=== PATIENT | female | born 1970 | race Caucasian/White ===

== ENCOUNTER 2018-04-09 07:47 | Inpatient (IN) | payer OTHER ==
[~2018-04-09 07:47] MED LIST: CEFAZOLIN 1 GM/50 ML (PMX) 50 ML IVPB; SOD CHLORIDE 0.9% 1,000 ML IV
[2018-04-09] MEDS ORDERED: LIDOCAINE 1% (MPF) 30 ML INJ (09:52)
[2018-04-09] MEDS ORDERED: BUPIVACAINE 0.25%/EPI (SDV) 30 ML INJ (09:52)
[2018-04-09] MEDS ORDERED: MIDAZOLAM 1 MG/ML 2 ML INJ (10:07)
[2018-04-09] MEDS ORDERED: ONDANSETRON 4 MG INJ (10:07)
[2018-04-09] MEDS ORDERED: ROPIVACAINE 0.5 % 30 ML VIAL (10:07)
[2018-04-09] MEDS ORDERED: ACETAMINOPHEN 1000MG/100ML IV 100 ML (10:07)
[2018-04-09] MEDS ORDERED: ROPIVACAINE 0.2% 20 ML VIAL (10:07)
[2018-04-09] MEDS ORDERED: CEFAZOLIN 1 GM INJ (10:07)
[2018-04-09] MEDS ORDERED: PROPOFOL 20 ML (10:07)
[2018-04-09] MEDS ORDERED: ROCURONIUM 50 MG INJ ×3 (10:07→13:56)
[2018-04-09] MEDS ORDERED: METOCLOPRAMIDE 10 MG INJ (10:08)
[2018-04-09] MEDS ORDERED: KETOROLAC 30 MG INJ (10:48)
[2018-04-09] MEDS ORDERED: FENTAnyl 50 MCG/ML VIAL (10:48)
[2018-04-09] MEDS ORDERED: morphine SULFATE/PF (10 MG/10 ML) INJ (11:50)
[2018-04-09] MEDS ORDERED: MINERAL OIL LIGHT 10 ML VIAL (11:54)
[2018-04-09] MEDS ORDERED: IPRATROPIUM (NEB) 0.5 MG/2.5 ML AMP HHN (12:00)
[2018-04-09] MEDS ORDERED: DIPHENHYDRAMINE 50 MG INJ IV ×2 (12:00→13:30)
[2018-04-09] MEDS ORDERED: hydrALAzine 20 MG INJ IV (12:00)
[2018-04-09] MEDS ORDERED: LABETALOL HCL 20MG INJ IV (12:00)
[2018-04-09] MEDS ORDERED: EPHEDrine SULFATE 50 MG/5 ML SYG IV (12:00)
[2018-04-09] MEDS ORDERED: MEPERIDINE 25 MG INJ IV (12:00)
[2018-04-09] MEDS ORDERED: HYDROmorphONE 1 MG/5 ML IV SYRINGE IV ×3 (12:00)
[2018-04-09] MEDS ORDERED: ONDANSETRON 4 MG INJ IV ×2 (12:00→13:30)
[2018-04-09] MEDS ORDERED: ALBUTEROL 0.083% (NEB) 2.5 MG/3 ML AMP HHN (12:00)
[2018-04-09] MEDS ORDERED: LIDOCAINE 2% (SDV) 5 ML INJ (12:24)
[2018-04-09] MEDS ORDERED: HYDROmorphONE 1 MG/ML SYG IV (13:30)
[2018-04-09] MEDS ORDERED: HYDROmorphONE 0.5 MG/0.5 ML SYG IV ×2 (13:30)
[2018-04-09] MEDS ORDERED: NALOXONE (0.4 MG/ML) INJ IV ×2 (13:30→14:30)
[2018-04-09] MEDS ORDERED: HYDROCODONE/APAP (5/325) TAB PO ×2 (13:30→14:30)
[2018-04-09] MEDS ORDERED: FENTAnyl 2MCG/ML-ROPIV 0.2% 100 ML BAG EPI (13:30)
[2018-04-09] MEDS ORDERED: KETOROLAC 30 MG INJ IV (13:30)
[2018-04-09] MEDS ORDERED: NEOSTIGMINE 3 MG/3 ML SYRINGE (13:54)
[2018-04-09] MEDS ORDERED: GLYCOPYRROLATE 0.4 MG INJ (13:54)
[2018-04-09] MEDS ORDERED: SUGAMMADEX SODIUM 200 MG/2 ML VIAL IV (14:02)
[2018-04-09] MEDS ORDERED: HYDROmorphONE 0.2 MG/ML PCA IV (14:30)
[2018-04-09] MEDS: SOD CHLORIDE 0.9% 1,000 ML IV (16:53)
[2018-04-09] MEDS: FENTAnyl 2MCG/ML-ROPIV 0.2% 100 ML BAG EPI (19:53)
[2018-04-10] MEDS: FENTAnyl 2MCG/ML-ROPIV 0.2% 100 ML BAG EPI (00:55)
[2018-04-10] MEDS: SOD CHLORIDE 0.9% 1,000 ML IV ×2 (02:00→09:40)
[2018-04-10 07:05] LABS: ADD MAN DIFF? NO
[2018-04-10 07:16] LABS: BASOPHILS % 0.2 % (0.0-2.0); EOSINOPHILS # 0.2 10^3/ul (0.0-0.5); HEMATOCRIT 32.5 % (37.0-47.0); LYMPHOCYTES # 1.6 10^3/ul (0.8-2.9); LYMPHOCYTES % 29.2 % (15.0-51.0); MEAN CORPUSCULAR HEMOGLOBIN 25.9 pg (29.0-33.0); MEAN CORPUSCULAR HGB CONC 30.8 g/dl (32.0-37.0); MEAN CORPUSCULAR VOLUME 84.2 fl (82.0-101.0); MEAN PLATELET VOLUME 9.3 fl (7.4-10.4); MONOCYTE # 0.5 10^3/ul (0.3-0.9); MONOCYTES % 9.5 % (0.0-11.0); NEUTROPHIL # 3.1 10^3/ul (1.6-7.5); NEUTROPHILS % 57.7 % (39.0-77.0); PLATELET COUNT 266 10^3/UL (140-415); RED BLOOD COUNT 3.86 10^6/ul (4.20-5.40)
[2018-04-10 07:16] LABS: WHITE BLOOD COUNT 5.4 10^3/ul (4.8-10.8)
[2018-04-10 07:39] LABS: ALANINE AMINOTRANSFERASE 26 IU/L (13-69); ALBUMIN 3.2 g/dl (3.3-4.9); ALBUMIN/GLOBULIN RATIO 1.06; ALKALINE PHOSPHATASE 92 IU/L (42-121); ANION GAP 13 (8-16); ASPARTATE AMINO TRANSFERASE 18 IU/L (15-46); BILIRUBIN,INDIRECT 0.5 mg/dl (0-1.1); BILIRUBIN,TOTAL 0.5 mg/dl (0.2-1.3); BLOOD UREA NITROGEN 10 mg/dl (7-20); CALCIUM 8.3 mg/dl (8.4-10.2); CARBON DIOXIDE 21 mmol/L (21-31); CHLORIDE 112 mmol/L (97-110); CREATININE 0.59 mg/dl (0.44-1.00); GLUCOSE 92 mg/dl (70-220); POTASSIUM 4.2 mmol/L (3.5-5.1); SODIUM 142 mmol/L (135-144); TOTAL PROTEIN 6.2 g/dl (6.1-8.1)
[2018-04-10] MEDS: LISINOPRIL 20 MG TAB PO (08:07)
[2018-04-10] MEDS: HYDROCODONE/APAP (5/325) TAB PO (10:28)
[2018-04-10] MEDS: IBUPROFEN 600 MG TAB GTB (12:20)
== END 2018-04-10 15:18 | disposition home or self-care (01) | DRG 355 ==
LOC: REC 07:47 → TEL 16:30
PROC: 0WUF4JZ Supplement Abdominal Wall with Synthetic Substitute, Percutaneous Endoscopic Approach (ICD-10-PCS; principal; 2018-04-09 09:30)
DX: K43.0 Incisional hernia with obstruction, without gangrene (principal); I10 Essential (primary) hypertension
CPT/HCPCS: 71045; 80053; 85025; 93005